=== PATIENT | female | born 2000 | race Caucasian/White ===

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

== ENCOUNTER 2020-08-29 21:31 | Observation (INO) | payer BC ==
[2020-08-29 22:05] LABS: Bacteria/HPF None Seen HPF (None Seen); Bilirubin Negative (Negative); Blood, Urine Negative (Negative); Clarity Clear (Clear); Glucose, Urine (Dipstick) Normal (Negative); Ketone, Urine 40 mg/dL (Negative); Leukocyte Negative Leu/uL (Negative); Mucous/LPF Rare LPF (<2+); Nitrite Negative (Negative); Protein, Urine (Dipstick) 50 mg/dL (Neg-Trace); RBC/HPF 0-3 HPF (0-3); Specific Gravity, Urine 1.031 (1.002-1.036); Squamous Epithelial 0-3 HPF (0-3); WBC/HPF 0-3 HPF (0-3)
[2020-08-29 22:08] LABS: #Basophils 0.1 thou/uL (0.0-0.2); #Lymphocytes 2.3 thou/uL (1.20-3.40); #Monocytes 0.5 thou/uL (0.11-0.59); #Neutrophils 5.5 thou/uL (1.40-6.50); %Basophils 0.6 % (0.0-1.0); %Eosinophils 0.5 % (0.0-10.0); %Lymphocytes 27.3 % (28.0-48.0); %Monocytes 6.5 % (0.0-4.0); %Neutrophils 65.2 % (31.0-61.0); Hemoglobin 13.7 g/dL (12.0-16.0); Mean Corpuscular HGB CONC 34.5 g/dL (32.0-36.0); Mean Corpuscular Hemoglobin 30.8 pg (25.0-35.0); Mean Corpuscular Volume 89.2 fL (78.0-98.0); Mean Platelet Volume 7.9 fL (7.4-10.4); Platelet Count 296 thou/uL (130-400); RBC Distribution Width 11.1 % (11.5-14.5); Red Blood Cell (RBC) Count 4.46 mill/uL (4.00-5.20); White Blood Cell (WBC) Count 8.4 thou/uL (4.8-10.8)
[2020-08-29 22:12] LABS: Amphetamine Not Detected (NotDetected); Cocaine Metabolite Screen Not Detected (NotDetected); Medtox Reader # READER 1; Methamphetamine Not Detected (NotDetected); Opiate Screen Not Detected (NotDetected); Phencyclidine (PCP) Not Detected (NotDetected); THC/Cannabinoid Screen Not Detected (NotDetected)
[2020-08-29 22:13] LABS: Barbiturates Screen Not Detected (NotDetected); Benzodiazepine Screen Not Detected (NotDetected); Medtox Control Line Valid? VALID (VALID); Methadone Not Detected (NotDetected); Oxycodone Screen Not Detected (NotDetected); Tricyclic Screen Not Detected (NotDetected)
[2020-08-29 22:17] LABS: BHCG - Serum Negative (NEGATIVE); Pregs Control Background? CLEAR/WHITE (CLR/WHITE); Pregs Control Bar Appear? YES (CONTROL BAR)
[2020-08-29 22:23] LABS: Calcium Oxalate Crystals 1+ HPF (None Seen)
[2020-08-29 22:29] LABS: ALT (SGPT) 7 U/L (8-55); AST (SGOT) 13 U/L (5-34); Alkaline Phosphatase 63 U/L (40-100); Anion Gap 15 mmol/L (10-20); BUN (Urea Nitrogen) 16 mg/dL (7.0-18.7); Bilirubin, Total 0.7 mg/dL (0.2-1.2); Calc. Creatinine Clearance 0 mL/min (70-130); Calcium 9.7 mg/dL (7.8-10.44); Carbon Dioxide 25 mmol/L (22-29); Chloride 102 mmol/L (98-107); Globulin 2.9 g/dL (2.4-3.5); Glucose 121 mg/dL (70-105); Potassium 3.5 mmol/L (3.5-5.1); Protein, Total 7.9 g/dL (6.0-8.3); Sodium 138 mmol/L (136-145)
[2020-08-29 22:30] LABS: Acetaminophen Less than 6.0 mcg/mL (10.0-30.0); Alcohol Less than 10 mg/dL (Less than 10); Salicylate Less than 8.0 mg/dL (15.0-30.0)
[2020-08-30] MEDS: Lactated Ringer's 1,000 ML IV SCH ×2 (02:15→07:51)
--- NOTE | 2020-08-30 03:33 | PDOC.HHP ---
Hospitalist HPI - History of Present Illness Intentional drug overdose History of Present Illness: This is a 20-year-old female patient with a past medical history of depression and anxiety who presents to the ED about an hour after ingesting overdose of venlafaxinebetween 50 and 30 pills she is not very surein an attempted self- harm. Patient talks with her parents after the events who brought her to the ED for further evaluation. At time of my evaluation she was in the room with her father. Patient notes that she was just frustrated with life and all the difficulties but did not really intend to kill herself. She denied any cough chest pain shortness of breath palpitations. As presentation blood pressure was 107/69, pulse 90, temperature 98.5, respiratory rate 17 and saturating 100% on room air. Is generally stable however noted to have clonus on examination. She was started on LR and hospitalist consulted to admit for observation. Initial CBC, CMP urinalysis and toxicology screen is were all essentially within normal limits. Hospitalist ROS - Review of Systems Constitutional: denies: fever, chills, sweats, weakness Respiratory: denies: cough, shortness of breath, hemoptysis Gastrointestinal: denies: nausea, vomiting, abdominal pain, diarrhea Musculoskeletal: denies: neck pain, shoulder pain, back pain Neurological: denies: weakness, numbness, incoordination All other systems reviewed; all pertinent +/- noted in HPI/Subj - Medication Medications: Active Medications Generic Name Dose Route Start Last Admin Trade Name Freq PRN Reason Stop Dose Admin Lactated Ringer's 1,000 mls @ 175 mls/hr 08/30/20 02:00 08/30/20 02:15 Lactated Ringer's IV 08/30/20 09:00 1,000 mls .[id number] CARLOS Administration Medications: Currently refer to ambulatory list. Allergies: No known drug allergies. - Exam General Appearance: awake alert Eye: PERRL, anicteric sclera ENT: normocephalic atraumatic, no oropharyngeal lesions Neck: supple, no JVD, no thyromegaly Heart: RRR, no murmur, no gallops, normal peripheral pulses Respiratory: CTAB, no wheezes, no rales, no ronchi Extremities: no cyanosis, no clubbing, no edema Neurological: cranial nerve grossly intact, no weakness, no focal deficits Musculoskeletal: normal tone, normal strength, no muscle wasting Psychiatric: normal behavior, A&O x 3, flat affect Hospitalist Results - Labs Result Diagrams: 08/30/20 06:41 08/30/20 06:41 Lab results: WBC 8.4 thou/uL (4.8-10.8) 08/29/20 21:52 Hgb 13.7 g/dL (12.0-16.0) 08/29/20 21:52 Hct 39.8 % (36.0-47.0) 08/29/20 21:52 MCV 89.2 fL (78.0-98.0) 08/29/20 21:52 Plt Count 296 thou/uL (130-400) 08/29/20 21:52 Neutrophils % 65.2 % (31.0-61.0) H 08/29/20 21:52 Sodium 138 mmol/L (136-145) 08/29/20 21:52 Potassium 3.5 mmol/L (3.5-5.1) 08/29/20 21:52 Chloride 102 mmol/L (98-107) 08/29/20 21:52 Carbon Dioxide 25 mmol/L (22-29) 08/29/20 21:52 BUN 16 mg/dL (7.0-18.7) 08/29/20 21:52 Creatinine 0.84 mg/dL (0.6-1.1) 08/29/20 21:52 Glucose 121 mg/dL (70-105) H 08/29/20 21:52 Calcium 9.7 mg/dL (7.8-10.44) 08/29/20 21:52 Total Bilirubin 0.7 mg/dL (0.2-1.2) 08/29/20 21:52 AST 13 U/L (5-34) 08/29/20 21:52 ALT 7 U/L (8-55) L 08/29/20 21:52 Alkaline Phosphatase 63 U/L (40-100) 08/29/20 21:52 Creatine Kinase 72 U/L (29-168) 08/29/20 21:52 Serum Total Protein 7.9 g/dL (6.0-8.3) 08/29/20 21:52 Albumin 5.0 g/dL (3.5-5.0) 08/29/20 21:52 Urine Ketones 40 mg/dL (Negative) A 08/29/20 21:46 Urine Blood Negative (Negative) 08/29/20 21:46 Urine Nitrite Negative (Negative) 08/29/20 21:46 Ur Leukocyte Esterase Negative Master/uL (Negative) 08/29/20 21:46 Urine RBC 0-3 HPF (0-3) 08/29/20 21:46 Urine WBC 0-3 HPF (0-3) 08/29/20 21:46 Ur Squamous Epith Cells 0-3 HPF (0-3) 08/29/20 21:46 Urine Bacteria None Seen HPF (None Seen) 08/29/20 21:46 Hospitalist H&P A/P - Plan Plan: This is a 20-year-old female patient with a history of depression and anxiety admitted with observation on account of intentional feeling of oxygen overdose. Intentional drug overdose Likely to cause self-harm. Poison control contactedto observe for a 2023 hrs. Monitor for clonus and 6 hourly EKG for QTC prolongation. IV fluids Monitor on telemetry. Depression Resume antidepressants when stable MHMR consult on discharge. VT prophylaxisLovenox CODE STATUSfull code
[2020-08-30 05:22] LABS: SARS-CoV-2 MS2 Positive; SARS-CoV-2 N Gene Negative; SARS-CoV-2 S Gene Negative; SARS-CoV-2 by NAA Not Detected (NotDetected); SARS-CoV-2 orf1ab Negative
[2020-08-30 05:50] VITALS: BMI 16.8
[2020-08-30 07:18] LABS: #Eosinphils 0.1 thou/uL (0.0-0.7); #Monocytes 0.9 thou/uL (0.11-0.59); #Neutrophils 5.9 thou/uL (1.40-6.50); %Basophils 0.4 % (0.0-1.0); %Eosinophils 1.2 % (0.0-10.0); %Lymphocytes 30.5 % (28.0-48.0); %Monocytes 9.1 % (0.0-4.0); %Neutrophils 58.9 % (31.0-61.0); Hemoglobin 11.6 g/dL (12.0-16.0); Mean Corpuscular HGB CONC 34.6 g/dL (32.0-36.0); Mean Corpuscular Volume 89.5 fL (78.0-98.0); Mean Platelet Volume 8.1 fL (7.4-10.4); Platelet Count 234 thou/uL (130-400); RBC Distribution Width 10.9 % (11.5-14.5); Red Blood Cell (RBC) Count 3.74 mill/uL (4.00-5.20)
[2020-08-30 07:37] LABS: Anion Gap 12 mmol/L (10-20); BUN (Urea Nitrogen) 15 mg/dL (7.0-18.7); Calc. Creatinine Clearance 105 mL/min (70-130); Calcium 8.4 mg/dL (7.8-10.44); Carbon Dioxide 23 mmol/L (22-29); Chloride 106 mmol/L (98-107); Glucose 71 mg/dL (70-105); Potassium 3.4 mmol/L (3.5-5.1); Sodium 138 mmol/L (136-145)
[2020-08-30 11:29] LABS: Magnesium 1.8 mg/dL (1.7-2.2); Phosphorus 3.2 mg/dL (2.3-4.7)
--- NOTE | 2020-08-30 17:14 | PDOC.HOSPP ---
- Subjective Encounter Date: 08/30/20 Encounter Time: 10:30 Subjective: pt up in bed no complains - Objective Vital Signs & Weight: Vital Signs (12 hours) Temp Pulse Resp BP Pulse Ox 08/30/20 15:42 99.1 F 81 18 107/77 98 08/30/20 11:18 98.0 F 87 16 109/79 99 08/30/20 07:48 98.9 F 98 16 123/80 98 Weight Admit Weight 110 lb 14.4 oz Weight 110 lb 14.4 oz Result Diagrams: 08/30/20 06:41 08/30/20 06:41 Hospitalist ROS - Review of Systems Respiratory: denies: cough, dry, shortness of breath, hemoptysis, SOB with excertion, pleuritic pain, sputum, wheezing, other Cardiovascular: denies: chest pain, palpitations, orthopnea, paroxysmal noc. dyspnea, edema, light headedness, other Gastrointestinal: denies: nausea, vomiting, abdominal pain, diarrhea, constipation, melena, hematochezia, other - Exam Neck: negative: supple, symmetric, no JVD, no thyromegaly, no lymphadenopathy, no carotid bruit, JVD Heart: negative: RRR, no murmur, no gallops, no rubs, normal peripheral pulses, irregular, diminshed peripheral pulses, murmur present, II/IV, III/IV Respiratory: negative: CTAB, no wheezes, no rales, no ronchi, normal chest expansion, no tachypnea, normal percussion, rales, rhonchi, tachypneic, wheezes Hosp A/P (1) Suicidal overdose Code(s): T50.902A - POISONING BY UNSP DRUG/MEDS/BIOL SUBST, SELF-HARM, INIT Status: Acute (2) Depression Code(s): F32.9 - MAJOR DEPRESSIVE DISORDER, SINGLE EPISODE, UNSPECIFIED Status: Acute - Plan Per poison control 18 hours of monitoring minimum. Patient has completed those hours. A QTC at 7 this a.m. was 438. Electrolytes are stable. Patient is brent coppola. Mental health evaluate the patient recommended home with safety plan however I do not feel comfortable sending the patient home given the fact that she is 20 years old and because she had a bad day and a lot of things going on in her life try to overdose on her antidepressants. I believe she needs a psychiatry evaluation by a psychiatrist.
[2020-08-30] MEDS ORDERED: Acetaminophen 325 MG TAB PO PRN (20:35)
[2020-08-30] MEDS ORDERED: FLU VACC QS2020-21(6MOS UP)/PF 60 MCG/0.5 ML SYRINGE IM ONE (21:00)
[2020-08-31 08:04] VITALS: BP 103/71; TEMP 98.2
--- NOTE | 2020-08-31 16:25 | PDOC.DS.DS ---
Provider - Provider Date of Admission: 08/29/20 23:56 Date of Discharge: 08/31/20 Admitting Provider: Shadi Damian MD Primary Care Physician: Thais Navarro PA-C Course - Hospital Course Hospital Course: Patient is a very pleasant 20-year-old female who initially presented to the hospital after overdose. Patient stated that she took half of her bottles of he r antidepressants. She states that she was having a bad day and and has a 2-year-old who was screaming and someone told her that she was being a bad mother. Patient after taking the medication called her father who then brought her to the hospital. patient has never done this before. I did speak with the patient extensively and the father about being discharged. Patient was evaluated by mental health who stated that she was safe to be discharged with a safety plan. I did also speak with the father personally and reinforced that she needs to be watched 24 hours. Patient's father states that he took off for the next 2 weeks and will do so. Patient also will be followed up with mental health and will be seen by psychiatry. Patient has verbally promised that she will never try to hurt herself again. Resuscitation Status: 08/30/20 03:24 Resuscitation Status Routine Resuscitation Status: FULL: Full Resuscitation - Labs Lab Results: 08/30/20 06:41 08/30/20 06:41 Abnormal Lab Results - Last 48 hrs 08/29/20 21:46: Urine Protein 50 A, Urine Ketones 40 A, Urine Urobilinogen 2.0 A, Calcium Oxalate Crystal 1+ A 08/29/20 21:52: ALT 7 L 08/29/20 21:52: RDW 11.1 L, Neutrophils % 65.2 H, Lymphocytes % 27.3 L, Monocytes % 6.5 H 08/29/20 21:52: Salicylates Less than 8.0 L, Acetaminophen Less than 6.0 L 08/30/20 06:41: Potassium 3.4 L 08/30/20 06:41: RBC 3.74 L, Hgb 11.6 L, Hct 33.4 L, RDW 10.9 L, Monocytes % 9.1 H, Monocytes # 0.9 H - Physical Exam Vitals: Vital Signs (12 hours) Temp Pulse Resp BP Pulse Ox 08/31/20 08:03 98.2 F 70 12 103/71 99 Weight Admit Weight 110 lb 14.4 oz Weight 106 lb Physical Exam: The patient was seen and examined on the day of discharge. Problem - Problem (1) Suicidal overdose Code(s): T50.902A - POISONING BY UNSP DRUG/MEDS/BIOL SUBST, SELF-HARM, INIT Status: Acute (2) Depression Code(s): F32.9 - MAJOR DEPRESSIVE DISORDER, SINGLE EPISODE, UNSPECIFIED Status: Acute Plan - Discharge Medications Home Medications: Medication Instructions Recorded Confirmed Type Venlafaxine HCl [Effexor XR] 75 mg PO DAILY 08/30/20 08/30/20 History Allergies: No Known Drug Allergies Allergy (Verified 08/30/20 01:46) - Discharge Instructions Discharge Instructions:: PT NEEDS 24 HOURS MONITORING UNTIL SHE HAS BEEN EVALUATED BY PSYCHIATRIST. Activity:: Activity as Tolerated Nourishment:: Heart Healthy Diet - Follow up Plan Referrals: [facility] [Outside] (Follow up as discussed to recieve phychiatric evaluation. ) Thais Navarro PA-C [Primary Care Provider] - Disposition: HOME Quality - Care Measures CORE MEASURES:: N/A
== END 2020-08-31 14:58 | disposition home or self-care (01) ==
LOC: ERS 21:31 → 2NO 23:56
PROVIDERS: ADMIT Student in an Organized Health Care Education/Training Program; ATTEND Student in an Organized Health Care Education/Training Program
DX: T43.212A Poisoning by selective serotonin and norepinephrine reuptake inhibitors, intentional self-harm, initial encounter (principal); F32.9 Major depressive disorder, single episode, unspecified; F41.9 Anxiety disorder, unspecified; F17.290 Nicotine dependence, other tobacco product, uncomplicated; Z79.899 Other long term (current) drug therapy; Z20.822 Contact with and (suspected) exposure to COVID-19
CPT/HCPCS: 36415; 80048; 80053; 80306; 80307; 81003; 81015; 82550; 83735; 84100; 84443; 84703; 85025; 87635; 93005; 93010; G0378; U0003